=== PATIENT | female | born 1975 | race Caucasian/White ===

== ENCOUNTER 2019-09-07 15:12 | Outpatient (RCR) | payer SELFPAY | END 2019-09-18 23:59 | disposition home or self-care (01) | LOC: SOT 15:12 | PROVIDERS: Referring Provider Orthopaedic Surgery; Visit Provider Orthopaedic Surgery | DX: X58.XXXD Exposure to other specified factors, subsequent encounter; S63.619D Unspecified sprain of unspecified finger, subsequent encounter | CPT/HCPCS: 97110; 97165 ==

== ENCOUNTER 2019-09-19 06:00 | Outpatient (RCR) | payer SELFPAY | END 2019-10-05 23:00 | disposition home or self-care (01) | LOC: SOT 06:00 | PROVIDERS: Visit Provider Orthopaedic Surgery | DX: S63.619D Unspecified sprain of unspecified finger, subsequent encounter (principal); X58.XXXD Exposure to other specified factors, subsequent encounter | CPT/HCPCS: 97110 ==

== ENCOUNTER 2022-01-31 06:00 | Outpatient (RCR) | payer OTHER, SELFPAY | END 2022-02-17 23:59 | disposition home or self-care (01) | LOC: GPT 06:00 | PROVIDERS: Visit Provider Nurse Practitioner | DX: M25.571 Pain in right ankle and joints of right foot (principal) | CPT/HCPCS: 97110; 97112; 97140; 97161 ==

== ENCOUNTER 2022-02-18 06:00 | Outpatient (RCR) | payer OTHER, SELFPAY | END 2022-03-19 23:59 | disposition home or self-care (01) | LOC: GPT 06:00 | PROVIDERS: Visit Provider Nurse Practitioner | DX: S93.601A Unspecified sprain of right foot, initial encounter (principal); X58.XXXA Exposure to other specified factors, initial encounter | CPT/HCPCS: 97110; 97112; 97140 ==

== ENCOUNTER 2022-03-20 06:00 | Outpatient (RCR) | payer OTHER, SELFPAY | END 2022-04-19 23:59 | disposition home or self-care (01) | LOC: GPT 06:00 | PROVIDERS: Visit Provider Nurse Practitioner | DX: S93.601A Unspecified sprain of right foot, initial encounter (principal); X58.XXXA Exposure to other specified factors, initial encounter | CPT/HCPCS: 97110; 97112; 97530 ==

== ENCOUNTER 2022-04-20 06:00 | Outpatient (RCR) | payer SELFPAY | END 2022-05-20 23:59 | disposition home or self-care (01) | LOC: GPT 06:00 | PROVIDERS: Visit Provider Nurse Practitioner | DX: M25.571 Pain in right ankle and joints of right foot (principal) | CPT/HCPCS: 97110; 97112; 97140; 97164; 97530 ==

== ENCOUNTER 2023-04-29 13:33 | Outpatient (CLI) | payer OTHER, SELFPAY ==
--- NOTE | 2023-04-29 13:30 | MM_ITS ---
WS: [id number] BILATERAL 3D TOMOSYNTHESIS DIGITAL SCREENING MAMMOGRAPHY WITH CAD CLINICAL INFORMATION: SCREENING HISTORY: Screening mammogram. No current complaints. COMPARISON: 2021 TECHNIQUE: Bilateral CC and MLO views. FINDINGS: Scattered fibroglandular densities bilaterally. No suspicious focal mass, asymmetry, calcifications, or architectural distortion. No evidence of malignancy. IMPRESSION: MM/[place] [id number] BI-RADS: 1-Negative FOLLOW UP: 1 Year Follow-up Recommend return to annual screening mammography.
== END 2023-04-29 13:34 | disposition home or self-care (01) ==
LOC: MOBLMAM 13:41
PROVIDERS: PCP Nurse Practitioner; Visit Provider Nurse Practitioner
DX: Z12.31 Encounter for screening mammogram for malignant neoplasm of breast (principal)
CPT/HCPCS: 77063; 77067

== ENCOUNTER 2024-07-05 13:34 | Outpatient (CLI) | payer BC, MEDICAID, SELFPAY ==
--- NOTE | 2024-07-05 14:00 | MM_ITS ---
WS: [id number] BILATERAL 3D TOMOSYNTHESIS DIGITAL SCREENING MAMMOGRAPHY WITH CAD CLINICAL INFORMATION: SCREENING HISTORY: Screening mammogram. No current complaints. COMPARISON: 2023 TECHNIQUE: Bilateral CC and MLO views. FINDINGS: Scattered fibroglandular densities bilaterally. No suspicious focal mass, asymmetry, calcifications, or architectural distortion. No evidence of malignancy. Stable asymmetric densities anterior LEFT breast MM/MM scr BI tomosynthesis [id number] IMPRESSION: DENSITY: There are scattered areas of fibroglandular density. BI-RADS: 2 - Benign. FOLLOW UP: 1 Year Follow-up Recommend return to annual screening mammography.
== END 2024-07-05 13:35 | disposition home or self-care (01) ==
LOC: MOBLMAM 13:59
PROVIDERS: PCP Nurse Practitioner; Visit Provider Nurse Practitioner
DX: Z12.31 Encounter for screening mammogram for malignant neoplasm of breast (principal); R92.323 Mammographic fibroglandular density, bilateral breasts; N64.89 Other specified disorders of breast
CPT/HCPCS: 77063; 77067

== ENCOUNTER 2024-09-07 07:57 | Outpatient (CLI) | payer BC, MEDICAID, SELFPAY ==
--- NOTE | 2024-09-07 08:00 | MR_ITS ---
WS: [id number] MRI LEFT KNEE HISTORY: Possible knee dislocation. Now with pain and popping sensation. COMPARISON: Radiograph 08/18/2024 Anterior cruciate ligament: Intact. Posterior cruciate ligament: Intact. Medial collateral ligament: Intact. Posterior lateral corner structures: Intact. Medial menisci: Intermediate signal towards the meniscal root. There is fraying along the superficial, superior surface of the meniscus towards the meniscal root. There is also slight blunting. Suspect there is probably a small tear. Anterior horn is normal. Lateral meniscus: Intact. Normal signal, size and shape. Extensor mechanism: Mild patellar tendinopathy. Fluid and soft tissue: Mild soft tissue edema surrounding the knee. No Weaver's cyst. Osseous and articular structures: Patellofemoral compartment: Small suprapatellar joint effusion. Mild lateral subluxation of the patella. There is bone contact of the lateral patellar facet on the lateral femoral condyle. There is a very small amount of marrow edema near the bone contact towards the patellar eminence. No marrow edema along the medial patella. Patellar retinaculum is intact. Medial compartment: Mild mild narrowing medial compartment. Moderate chondromalacia. 6 mm area of chondromalacia along the weightbearing surface of the femoral condyle. Area of chondromalacia extends medially towards the signal abnormality in the meniscal root. Small marginal osteophytes. No marrow edema. Lateral compartment: Very mild narrowing of the lateral compartment. Mild chondromalacia with a focal 3 mm cartilage defect along the weightbearing surface of the lateral femoral condyle. No marrow edema. MR/MR knee LT wo con* [id number] IMPRESSION: 1. Mild lateral subluxation of the patella. There is bone upon bone of the lat eral patellar facet and lateral femoral condyle. 2. Small amount of marrow edema at the patellar eminence, close to the bone co ntact. 3. No marrow pattern to suggest transient dislocation of the patella. 4. Abnormal signal and shape posterior horn medial meniscus towards the menisc al root along with chondromalacia. Meniscal root tear likely. 5. Medial compartment, mild narrowing with moderate chondromalacia. 6. Lateral compartment, very mild narrowing. Mild chondromalacia. Focal 3 mm c artilage defect weightbearing surface femoral condyle.
== END 2024-09-07 07:58 | disposition home or self-care (01) ==
PROVIDERS: PCP Nurse Practitioner; Visit Provider Orthopaedic Surgery
DX: S83.012A Lateral subluxation of left patella, initial encounter (principal); X58.XXXA Exposure to other specified factors, initial encounter; R60.0 Localized edema; R93.6 Abnormal findings on diagnostic imaging of limbs; M94.262 Chondromalacia, left knee; M67.864 Other specified disorders of tendon, left knee; M25.462 Effusion, left knee; M17.12 Unilateral primary osteoarthritis, left knee; M25.762 Osteophyte, left knee
CPT/HCPCS: 73721